=== PATIENT | female | born 1995 | race Caucasian/White ===

== ENCOUNTER 2016-10-27 05:32 | Day surgery (SDC) | payer OTHER ==
[~2016-10-27] VITALS: Ht 154.9 cm; Wt 53.0 kg
[~2016-10-27 05:32] MED LIST: ATARAX,VISTARIL25 MG PO; BIRTH CONTROL PILL; DICLEGIS DR 101 EACH PO; ENDOCET 5-3251 EACH PO; FLAGYL500 MG PO; IBUPROFEN800 MG PO; LO LOESTRIN FE1 EACH PO; MOBIC15 MG PO; NOHOMEMEDS; PHENERGAN-CODE120 ML PO; PRENATAL TABLE1 EAC3 PO; PROAIR HFA8.5 GM IH; VENTOLIN HFA18 GM IH; ZANTAC150 MG PO
[2016-10-27 06:05] VITALS: BP 110/52
[2016-10-27 07:30] LABS: METH RESISTANT S AUREUS PCR NEGATIVE (NEGATIVE); PROBE CHECK PASS; SPECIMEN PROCESSING CONTROL PASS
[2016-10-27] MEDS ORDERED: PERCOCET 5/31 TABLET PO (09:09)
[2016-10-27 10:30] VITALS: BP 91/44
[2016-10-27 11:35] VITALS: BP 88/49
[2016-10-27 13:35] VITALS: BP 91/48
[2016-10-28 13:01] LABS: INTERNAL CONTROL VALID? YES
== END 2016-10-27 13:55 | disposition home or self-care (01) ==
LOC: SDC 05:32
PROVIDERS: Surgery
PROC: 0FT44ZZ Resection of Gallbladder, Percutaneous Endoscopic Approach (ICD-10-PCS; principal; 2016-10-27)
DX: K80.10 Calculus of gallbladder with chronic cholecystitis without obstruction (principal); E28.2 Polycystic ovarian syndrome; F41.9 Anxiety disorder, unspecified
CPT/HCPCS: 84703; 87641; 88304; J0330; J1100; J1885; J2250; J2405; J2710; J2765; J3010

== ENCOUNTER 2017-06-12 14:52 | Emergency (ER) | payer OTHER ==
[~2017-06-12] VITALS: Ht 154.9 cm; Wt 53.6 kg
[~2017-06-12 14:52] MED LIST changes: +PERCOCET 5/31 TABLET PO
[2017-06-12] MEDS ORDERED: CIPRO500 MG PO (18:16)
[2017-06-12] MEDS ORDERED: DIFLUCAN150 MG PO (18:51)
[2017-06-12 19:13] VITALS: BP 104/64
== END 2017-06-12 19:14 | disposition home or self-care (01) ==
LOC: EME 14:52
PROC: 3E0234Z Introduction of Serum, Toxoid and Vaccine into Muscle, Percutaneous Approach (ICD-10-PCS; principal; 2017-06-12)
DX: S61.531A Puncture wound without foreign body of right wrist, initial encounter (principal); W45.0XXA Nail entering through skin, initial encounter; W19.XXXA Unspecified fall, initial encounter; Z23 Encounter for immunization
CPT/HCPCS: 73110; 99281; 99282

== ENCOUNTER 2017-06-30 09:00 | Emergency (ER) | payer OTHER ==
[~2017-06-30] VITALS: Ht 154.9 cm; Wt 52.0 kg
[~2017-06-30 09:00] MED LIST changes: +CIPRO500 MG PO; +DIFLUCAN150 MG PO
[2017-06-30 09:07] VITALS: BP 121/52
== END 2017-06-30 12:10 | disposition home or self-care (01) ==
LOC: EME 09:00
PROC: 0HQ1XZZ Repair Face Skin, External Approach (ICD-10-PCS; principal; 2017-06-30)
DX: S05.41XA Penetrating wound of orbit with or without foreign body, right eye, initial encounter (principal); Y04.2XXA Assault by strike against or bumped into by another person, initial encounter
CPT/HCPCS: 70486; 99281; 99284

== ENCOUNTER 2017-12-23 21:43 | Inpatient (IN) | payer OTHER ==
[~2017-12-23] VITALS: Ht 175.3 cm; Wt 69.2 kg
[2017-12-23 22:33] LABS: HEMATOCRIT 40.4 % (36.0-46.0); HEMOGLOBIN 13.9 G/DL (11.9-15.5); MCH 30.3 PG (29.0-34.0); MCHC 34.4 G/DL (30.0-36.0); PLATELET COUNT 230 K/uL (156-360); RBC DIS.WIDTH-CV 12.7 % (11.8-14.6); RBC DIS.WIDTH-SD 41.1 % (39-53); RED BLOOD COUNT 4.59 M/uL (3.80-5.20); WHITE BLOOD COUNT 12.1 K/uL (4.1-10.2)
[2017-12-23 22:44] LABS: ALBUMIN 4.6 g/dL (3.2-4.8); CHLORIDE 107 mEq/L (99-109); POTASSIUM 3.8 mEq/L (3.7-5.4); SODIUM 139 mEq/L (136-147)
[2017-12-23 22:47] LABS: GLUCOSE 109 mg/dL (70-99); TOTAL PROTEIN 7.2 g/dL (6.4-8.3)
[2017-12-23 22:49] LABS: TOTAL BILIRUBIN 0.4 mg/dL (0.0-1.0)
[2017-12-23 22:50] LABS: ALKALINE PHOSPHATASE 103 IU/L (3-129); CREATININE 0.8 mg/dL (0.6-1.3); GFR ESTIMATE (CALCULATED) > 59 mL/min/
[2017-12-23 22:51] LABS: UREA NITROGEN (BUN) 13 mg/dL (9-23)
[2017-12-23 22:52] LABS: AST (GOT) 27 IU/L (2-34)
[2017-12-23 22:53] LABS: ALT (GPT) 14 IU/L (3-49)
[2017-12-23 22:59] LABS: QUANTITATIVE HCG 10.5 MIU/ML
[2017-12-24] VITALS (7 sets, daily range): BP systolic 80–139; BP diastolic 42–67
[2017-12-24] MEDS ORDERED: BIRTHCONTROL PO (01:37)
[2017-12-24 06:09] LABS: HEMATOCRIT 36.9 % (36.0-46.0); HEMOGLOBIN 12.4 G/DL (11.9-15.5); MCH 29.4 PG (29.0-34.0); MCHC 33.6 G/DL (30.0-36.0); MCV 87.4 FL (83-99); PLATELET COUNT 228 K/uL (156-360); RBC DIS.WIDTH-CV 12.9 % (11.8-14.6); RBC DIS.WIDTH-SD 41.2 % (39-53); RED BLOOD COUNT 4.22 M/uL (3.80-5.20); WHITE BLOOD COUNT 12.4 K/uL (4.1-10.2)
[2017-12-24 06:34] LABS: ALBUMIN 4.2 G/DL (3.2-4.8); ALKALINE PHOSPHATASE 79 IU/L (3-129); ALT (GPT) 18 IU/L (3-49); AST (GOT) 23 IU/L (2-34); CHLORIDE 106 MEQ/L (99-109); CREATININE 0.7 MG/DL (0.6-1.3); GFR ESTIMATE (CALCULATED) > 59 mL/min/; GLUCOSE 98 mg/dL (70-99); POTASSIUM 3.5 MEQ/L (3.7-5.4); SODIUM 139 MEQ/L (136-147); TOTAL BILIRUBIN 0.6 MG/DL (0.0-1.0); TOTAL PROTEIN 6.3 G/DL (6.4-8.3); UREA NITROGEN (BUN) 8 mg/dL (9-23)
[2017-12-25 08:13] VITALS: BP 106/52
[2017-12-25 16:53] VITALS: BP 109/62
[2017-12-25 23:13] VITALS: BP 98/50
[2017-12-26 05:47] LABS: BASOPHIL (%) 0.5 % (0-1); EOSINOPHIL (%) 4.8 % (0-5); EOSINOPHIL COUNT 0.3 K/uL (0-0.3); HEMATOCRIT 33.2 % (36.0-46.0); HEMOGLOBIN 11.1 G/DL (11.9-15.5); IMMATURE GRANULOCYTE (%) 0.2 % (0.0-0.7); LYMPHOCYTE (%) 41.2 % (15-42); LYMPHOCYTE COUNT 2.3 K/uL (1.0-2.8); MCH 30.2 PG (29.0-34.0); MCHC 33.4 G/DL (30.0-36.0); MCV 90.2 FL (83-99); MONOCYTE (%) 10.2 % (3-12); MONOCYTE COUNT 0.6 K/uL (0-0.8); NEUTROPHIL (%) 43.1 % (45-76); NEUTROPHIL COUNT 2.4 K/uL (1.8-6.4); PLATELET COUNT 177 K/uL (156-360); RBC DIS.WIDTH-CV 13.2 % (11.8-14.6); RBC DIS.WIDTH-SD 43.2 % (39-53); RED BLOOD COUNT 3.68 M/uL (3.80-5.20); WHITE BLOOD COUNT 5.6 K/uL (4.1-10.2)
[2017-12-26 08:26] VITALS: BP 102/52
[2017-12-26 16:40] VITALS: BP 100/51
[2017-12-26 23:42] VITALS: BP 84/52
[2017-12-27 01:00] VITALS: BP 93/53
[2017-12-27 03:15] VITALS: BP 87/43
[2017-12-27] MEDS ORDERED: HYDROCODON-ACE1 EAC9 PO (08:02)
[2017-12-27 08:06] VITALS: BP 95/49
[2017-12-27] MEDS ORDERED: ONDANSETRON ODT4 MG PO (16:47)
[2017-12-27 17:00] VITALS: BP 105/45
== END 2017-12-27 18:17 | disposition home or self-care (01) | DRG 201 ==
LOC: EME 21:43 → 3EAST 12-24 01:25 → EDOF 12-24 01:25 → ENRESERV 12-24 02:54 → 3EAST 12-24 04:00
PROVIDERS: Physician Assistant; Surgery
DX: S27.0XXA Traumatic pneumothorax, initial encounter (principal); F43.22 Adjustment disorder with anxiety; G47.00 Insomnia, unspecified; S01.81XA Laceration without foreign body of other part of head, initial encounter; S20.211A Contusion of right front wall of thorax, initial encounter; S43.50XA Sprain of unspecified acromioclavicular joint, initial encounter; Y04.0XXA Assault by unarmed brawl or fight, initial encounter; Z33.1 Pregnant state, incidental
CPT/HCPCS: 70450; 70498; 71045; 71260; 74177; 80053; 84702; 85025; 85027; 87641; 99281; 99285; G0378; J1650; J2270; J2405; J7120; Q0169